=== PATIENT | female | born 1945 | race Caucasian/White ===

== ENCOUNTER 2023-11-04 06:07 | Day surgery (SDC) | payer OTHER ==
[2023-11-01 09:16] LABS: HEMATOCRIT 37.3 % (36.0-45.00); HEMOGLOBIN 12.7 g/dL (12.0-15.00); MEAN CELL VOLUME 87.9 fL (80.00-100.00); MEAN CORPUSCULAR HEMOGLOBIN 29.9 pg (27.00-32.0); PLATELET COUNT 261 K/uL (150-450); RED BLOOD COUNT 4.24 M/uL (4.00-6.00); RED CELL DISTRIBUTION WIDTH 14.1 % (11.5-14.5)
[2023-11-01 09:23] LABS: URINE APPEARANCE Clear; URINE BILIRRUBIN Negative (NEGATIVE); URINE BLOOD Negative; URINE COLOR Yellow; URINE GLUCOSE Negative (NEGATIVE); URINE LEUKOCYTE Trace; URINE NITRATE Negative; URINE PROTEIN Negative (NEGATIVE); URINE UROBILINOGEN 0.2 E.U./dl
[2023-11-01 09:25] LABS: URINE BACTERIA 15.1 uL (0.0-1933); URINE EPITHELIAL CELLS 5.5 uL (0.0-38.8); URINE RBC 10.9 uL (0.0-20.8); URINE WBC 10.6 uL (0.0-23.2)
[2023-11-01 09:38] LABS: INR 0.97; PARTIAL THROMBOPLASTIN TIME 29.1 SECONDS (22.0-34.0); PROTHROMBIN TIME 10.2 SECONDS (9.0-11.5)
[2023-11-01 09:48] LABS: ALBUMIN 3.9 gm/dL (3.4-5.0); BILIRUBIN TOTAL 0.65 mg/dL (0.3-1.2); CALCIUM 9.4 mg/dL (8.5-10.1); CREATININE SERUM 0.72 mg/dL (0.55-1.02); GFR 78.96; GLOBULINA 3.4 G/DL (2.4-3.5); POTASSIUM 3.82 mEq/L (3.5-5.1); TOTAL PROTEIN 7.3 gm/dL (6.4-8.2)
[~2023-11-04 06:07] MED LIST: ARICEPT5 MG PO; B12 ACTIVE1000 MCG PO; CHILDREN'S ASPI81 MG PO; GRALISE600 MG PO; LOSARTAN POTAS100 MG PO; OSTERA TABLET1 EACH PO; SYNTHROID112 MCG PO; VOLTAREN ARTHRI20 GM
[2023-11-04] MEDS ORDERED: CEFAZOLIN SODIUM 1,000 MG VIAL ONE (12:31)
[2023-11-04] MEDS ORDERED: CHLORHEXIDINE GLUCONATE 120 ML BOTTLE TOP ONE ×2 (12:31→16:15)
[2023-11-04] MEDS ORDERED: CEFAZOLIN SODIUM 1,000 MG VIAL IV ONE (16:15)
[2023-11-04] MEDS ORDERED: ONDANSETRON HCL 2 MG/ML VIAL ONE (19:21)
== END 2023-11-04 21:35 | disposition home or self-care (01) ==
LOC: CIR.AMB 06:07
PROVIDERS: ATTEND Surgery
DX: C50.811 Malignant neoplasm of overlapping sites of right female breast (principal); R59.0 Localized enlarged lymph nodes; N60.81 Other benign mammary dysplasias of right breast; Z20.822 Contact with and (suspected) exposure to COVID-19
CPT/HCPCS: 19301; 38525; 19281; A9541; L8699